=== PATIENT | female | born 1995 | race Two or more races ===

== ENCOUNTER 2021-09-18 08:00 | Outpatient (CLI) | payer OTHER | END 2021-09-19 08:30 | disposition home or self-care (01) | LOC: PPH VACUNA 08:00 | PROVIDERS: ATTEND Emergency Medicine Pediatric Emergency Medicine | DX: Z23 Encounter for immunization (principal) ==

== ENCOUNTER 2023-03-26 13:30 | Inpatient (IN) | payer OTHER ==
[~2023-03-26] VITALS: Ht 157.5 cm; Wt 90.7 kg
[2023-03-27] MEDS ORDERED: PRENATAL TABLE1 EAC1 PO (06:25)
[2023-03-27] MEDS ORDERED: INTEGRA PLUS C1 EACH PO (06:25)
[2023-03-29] MEDS ORDERED: IBUPROFEN800 MG PO (09:09)
== END 2023-03-29 13:50 | disposition home or self-care (01) | DRG 798 ==
LOC: OB/GYN 03-27 05:56 → LDR 03-27 05:56 → OB/GYN 03-27 13:08 → LDR 03-27 13:30 → O/R 03-28 15:40 → OB/GYN 03-28 15:42
PROVIDERS: ADMIT Specialist; ATTEND Specialist
PROC: 10E0XZZ Delivery of Products of Conception, External Approach (ICD-10-PCS; principal; 2023-03-27)
PROC: 4A1HXCZ Monitoring of Products of Conception, Cardiac Rate, External Approach (ICD-10-PCS; 2023-03-27)
PROC: 0UB70ZZ Excision of Bilateral Fallopian Tubes, Open Approach (ICD-10-PCS; 2023-03-28)
DX: O80 Encounter for full-term uncomplicated delivery (principal); Z37.0 Single live birth; Z3A.38 38 weeks gestation of pregnancy; Z30.2 Encounter for sterilization; Z20.822 Contact with and (suspected) exposure to COVID-19